=== PATIENT | female | born 1950 | race Caucasian/White ===

== ENCOUNTER 2017-03-02 20:38 | Emergency (ER) | payer OTHER, MEDICARE ==
--- NOTE | 2017-03-02 23:34 | ED ORDER SUMMARY ---
..... Patient: KLARISSA JULIEN OrderSheet [facility] VisitID: [id number] [address] [place] [address] 66y, F Registration Date/Time: 03/02/2017 ORDER SHEET Weight: 58.9 kg Allergies: No Known Drug Allergy GENERAL ORDERS: UA-Culture if indicated Urgent (21:05 03/02/2017 Maikel Justin) (Ack 21:15 LMuller) (21:16 Yulissa R.N.) Chest 2V Urgent (21:33 03/02/2017 Maikel Justin) (Ack 21:39 LMuller) (22:58 LMuller) CBC w Diff Urgent (21:34 03/02/2017 Maikel Justin) (21:34 Yulissa R.N.) CMP Urgent (21:34 03/02/2017 Maikel Justin) (21:35 Yulissa GouldN.) TSH Urgent (21:34 03/02/2017 Maikel Justin) (21:35 Yulissa R.N.) Pulse oximeter (21:34 03/02/2017 Maikel Justin) (21:34 Yulissa R.N.) MEDICATION ORDERS: Phenergan IV 25 mg (HIGH ALERT MEDICATION, NOW) (23:32 03/02/2017 Maikel Justin) (Ack 23:40 Yulissa R.N.) (23:40 Yulissa R.N.) IV FLUIDS: IV NS : initial bolus 1000 mL (1000 mL/hr), then none - for X1 (NOW) (21:33 03/02/2017 Maikel Justin) (Ack 21:35 Yulissa R.N.) (21:41 Yulissa R.N.) Zofran IV 4 mg (NOW) (21:34 03/02/2017 Maikel Justin) (Ack 21:35 Yulissa R.NKatelynn) (21:41 Yulissa R.N.) ORDER SHEET NOTES: [Electronically signed by Dave Friedman R.N. (23:48 03/02/2017)] [Electronically signed by Uri Abreu Dr. (03:52 03/06/2017)] [Electronically locked/signed by Dave Friedman R.N. (23:48 03/02/2017)]
--- NOTE | 2017-03-02 23:34 | ED CLINICAL REPORT ---
Clinical Report - Physicians/Mid Levels [facility] [address] [place] [address] 03/02/2017 20:44 Patient: KLARISSA JULIEN Time Seen: 2114. Arrived- By private vehicle. Historian- patient. HISTORY OF PRESENT ILLNESS Chief Complaint: FEVER. This started past 2 days and is still present. She has had measured fever ("Low 100s to 99"). It is not gone now. Fever was gradual in onset and has been intermittent. No chest pain, decreased oral intake, diarrhea or altered mental status. Additional history - No known contact with a sick individual. She is not immunocompromised. No recent hospitalization. No new medication recently administered. nausea and vomiting. no pain anywhere. Reports history of heat intolerance. Similar symptoms previously: None. Recent medical care: Not recently seen/assessed. REVIEW OF SYSTEMS No anorexia, weight loss, palpitations, calf pain or sputum production. No black stools, difficulty with urination, flank pain, headache or sinus pain. No sore throat, tick bite, easy bruising, enlarged lymph nodes or neck pain. No back pain. no cough. All systems otherwise negative, except as recorded above. PAST HISTORY See nurses notes. SOCIAL HISTORY Former smoker. Not exposed to second-hand smoke at home. No alcohol use or drug use. No recent travel. Residence: from [place]. ADDITIONAL NOTES The nursing notes have been reviewed. PHYSICAL EXAM Vital Signs: 03/02/2017 21:02 BP: 133/74. HR: 96. RR: 16. O2 saturation: 98%. Temp: 98.1 F. Pain level now: 0/10. Blood pressure normal. Oxygen saturation normal. Appearance: Alert. No acute distress. Eyes: Pupils equal, round and reactive to light. Eyes normal inspection. ENT: Ears normal. Nose normal. Pharynx normal. Uvula midline. Neck: Normal inspection. Neck supple. No meningeal signs. CVS: Normal heart rate and rhythm. Heart sounds normal. Respiratory: No respiratory distress. Breath sounds normal. Chest nontender. No rales, rhonchi or wheezes. Abdomen: Soft and nontender. Bowel sounds normal. Skin: Skin warm and dry. Normal skin color. No rash. Normal skin turgor. Extremities: Extremities exhibit normal ROM. Extremities nontender. Neuro: Oriented X 3. No motor deficit. No sensory deficit. LABS, X-RAYS, AND EKG Laboratory Tests: UA-Culture if indicated: (MARIAN: 03/02/2017 21:20) ( [facility] 03/02/2017 21:51) Final results Test Result Flag Units (Reference) URINE COLOR DARK YELLOW URINE APPEARANCE CLEAR URINE GLUCOSE NEGATIVE (NEGATIVE) URINE BILIRUBIN ICTOTEST NEGATIVE (NEGATIVE) URINE KETONE 1+ (NEGATIVE) URINE SPECIFIC GRAVITY 1.020 (1.010-1.030) URINE PH 6.0 (5.0-8.0) URINE PROTEIN 1+ (NEGATIVE) URINE UROBILINOGEN 1.0 EU/dL (0.2-1.0) URINE NITRITE NEGATIVE (NEGATIVE) URINE BLOOD NEGATIVE (NEGATIVE) URINE LEUK ESTERASE NEGATIVE (NEGATIVE) URINE RBC NONE SEEN rbc/hpf (0-1) URINE WBC 0-1 wbc/hpf (0-1) URINE EPITHELIAL CELLS 0-1 EPI/hpf (0-5) URINE BACTERIA NONE SEEN (NONE SEEN) URINE COMMENT CULT NOT INDICATED 3-5 Hyaline Casts/l.p.f.1+ MucusURINE CULTURES ARE SET-UP BASED ON THE FOLLOWING CRITERIA:POSITIVE NITRITEPOSITIVE LEUKOCYTE ESTERASEGREATER THAN 10 WHITE BLOOD CELLSMODERATE (2+) OR GREATER BACTERIA CBC w Diff: (MARIAN: 03/02/2017 21:27) ( [facility] 03/02/2017 21:46) Final results Test Result Flag Units (Reference) WHITE BLOOD COUNT 9.4 K/uL (4.5-11.5) RED BLOOD COUNT 4.45 M/uL (4.00-5.20) HEMOGLOBIN 12.9 gm/dL (12.0-16.0) HEMATOCRIT 38.4 % (36.0-46.0) MEAN CELL VOLUME 86 fL (80-100) MEAN CORPUSCULAR HGB 29 pg (26-34) MEAN CORPUSCULAR HGB CONC 34 g/dL (31-37) RED CELL DISTRIBUTION WIDTH 15.5 H % (11.6-14.8) PLATELET COUNT 349 K/uL (150-400) NEUTROPHIL % 75.5 H % (50-75) LYMPH % 16.9 L % (25-40) MONO % 6.5 % (3-14) EOSINOPHIL % 0.5 % (0-4) BASOPHIL % 0.6 % (0-2) CMP: (MARIAN: 03/02/2017 21:27) ( MsgRcvd 03/02/2017 22:00) Final results Test Result Flag Units (Reference) GLUCOSE 143 H mg/dL (70-110) BUN 12 mg/dL (7-18) CREATININE 0.8 mg/dL (0.6-1.3) Estimated GFR >60 mL/min Estimated GFR- >60 mL/min Note: Persistent reduction over 3 months in eGFR<60 mL/min/1.73 m2 defines CKD. Patients with eGFR values>=60 mL/min/1.73 m2 may also have CKD if evidence ofpersistent proteinuria. Additional information may be foundat www.kidney.org. SODIUM 140 mmol/L (136-145) POTASSIUM 3.4 L mmol/L (3.5-5.1) CHLORIDE 102 mmol/L (98-107) CARBON DIOXIDE 22 mmol/L (21-32) CALCIUM 9.8 mg/dL (8.5-10.1) TOTAL PROTEIN 8.1 g/dL (6.4-8.2) ALBUMIN 4.1 g/dL (3.3-5.0) BILIRUBIN, TOTAL 0.4 mg/dL (0.0-1.0) ALKALINE PHOSPHATASE 84 U/L (46-116) AST (SGOT) 34 U/L (15-37) ALT (SGPT) 57 U/L (12-78) THYROID STIMULATING HORMONE 1.622 uIU/mL (0.30-3.74) . PROGRESS AND PROCEDURES Course of Care: the patient is a 66-year-old female presenting for evaluation of nausea vomiting and diarrhea. Patient is nontoxic and in no acute distress. Vital signs here in the emergency Department taken on triage are unremarkable. At this time differential diagnosis includes viral etiology for the patient's diarrhea and vomiting. Patient also been evaluated with urinalysis as well as TSH. Patient does report some history of heat intolerance. Patient also been evaluated with a TSH. The patient states that she is currently visiting from out of town. Patient is agreeable to the treatment and plan. the patient's workup was remarkable for the findings above. No signs of urinary tract infection, pancreatitis, hepatitis, or other more sinister etiologies for the patient's symptoms here today. Because of the patient's negative workup here in the emergency department, patient was encouraged to follow up with her primary care doctor in regards to the fever and symptoms here today. I discussed with the patient her workup here in the emergency department including diagnosis, home care, follow-up, and return precautions. All questions have been answered. The patient expressed understanding of these instructions and was agreeable to th. CLINICAL IMPRESSION Acute fever Vomiting with nausea. 03/02/2017 22:50 BP: 130/76. HR: 90. RR: 18. O2 saturation: 95%. Pain level now: 0/10. Blood pressure normal. Oxygen saturation normal. Mild dehydration (acute). INSTRUCTIONS Warnings: GENERAL WARNINGS: Return or contact your physician immediately if your condition worsens or changes unexpectedly, if not improving as expected, or if other problems arise. Specifically return if pain, vomiting, bleeding, breathing difficulty or fever. Your Current Medications: CONTINUE TAKING THE FOLLOWING MEDICATIONS: Diclofenac Oral. Norvasc Oral. Prevacid Oral. Prescription Medications: Phenergan Tablets 25 mg: take 1 tablet orally every 8 hours as needed for nausea and vomiting. Dispense thirty (30). No refill. Substitution is permissible Follow-up: Return to the emergency department as needed. Follow up with your doctor as scheduled. Reason for referral: recheck today's concerns. Summary of care provided to patient via paper. Screening today revealed the patient's blood pressure to be in the normal range. The patient should follow up with a primary care provider for blood pressure management. Understanding of the discharge instructions verbalized by patient. (Electronically signed by Uri Abreu Dr. 03/06/2017 3:52)
--- NOTE | 2017-03-02 23:34 | ED ORDER SUMMARY ---
..... Patient: KLARISSA JULIEN OrderSheet [facility] VisitID: [id number] [address] [place] [address] 66y, F Registration Date/Time: 03/02/2017 ORDER SHEET Weight: 58.9 kg Allergies: No Known Drug Allergy GENERAL ORDERS: UA-Culture if indicated Urgent (21:05 03/02/2017 Maikel Justin) (Ack 21:15 LMuller) (21:16 Yulissa R.N.) Chest 2V Urgent (21:33 03/02/2017 Maikel Justin) (Ack 21:39 LMuller) (22:58 LMuller) CBC w Diff Urgent (21:34 03/02/2017 Maikel Justin) (21:34 Yulissa R.N.) CMP Urgent (21:34 03/02/2017 Maikel Justin) (21:35 Yulissa GouldN.) TSH Urgent (21:34 03/02/2017 Maikel Justin) (21:35 Yulissa R.N.) Pulse oximeter (21:34 03/02/2017 Maikel Justin) (21:34 Yulissa R.N.) MEDICATION ORDERS: Phenergan IV 25 mg (HIGH ALERT MEDICATION, NOW) (23:32 03/02/2017 Maikel Justin) (Ack 23:40 uYlissa R.N.) (23:40 Yulissa R.N.) IV FLUIDS: IV NS : initial bolus 1000 mL (1000 mL/hr), then none - for X1 (NOW) (21:33 03/02/2017 Maikel Justin) (Ack 21:35 Yulissa R.N.) (21:41 Yulissa R.N.) Zofran IV 4 mg (NOW) (21:34 03/02/2017 Maikel Justin) (Ack 21:35 Yulissa R.NKatelynn) (21:41 Yulissa R.N.) ORDER SHEET NOTES: [Electronically signed by Dave Friedman R.N. (23:48 03/02/2017)] [Electronically signed by Uri Abreu Dr. (03:52 03/06/2017)] [Electronically locked/signed by Dave Friedman R.N. (23:48 03/02/2017)]
--- NOTE | 2017-03-02 23:34 | ED NURSING NOTES ---
Clinical Report - Nurses [facility] [address] [place] [address] 03/02/2017 20:44 Patient: KLARISSA JULIEN TRIAGE Triage time 21:04. Acuity: LEVEL 3. Chief Complaint: NAUSEA and VOMITING. --21:13 Dave Friedman R.N. 21:02 03/02/17. BP: 133/74. HR: 96. RR: 16. O2 saturation: 98%. Temp: 98.1 F (oral). Pain level now: 0/10. --21:13 Dave Friedman R.N. Weight: 58.9 kg. Height/Length: 62 inches. BMI: 23.8. --21:11 Dave Friedman R.N. Medications Norvasc Oral. --21:08 Dave Friedman R.N. Prevacid Oral. --21:08 Dave Friedman R.N. Diclofenac Oral. --21:08 Dave Friedman R.N. Medication/allergy information source: the patient. --21:13 Dave Friedman R.N. Allergies No Known Drug Allergy. --21:08 Dave Friedman R.N. History Arrived by private vehicle. Historian: patient. Accompanied by friend. ( Fever since Thursday night with nausea and vomiting, no diarrhea and abdominal pain.). Onset. (3 days ago). She has had nausea and vomiting. Last oral intake by patient was liquid 1 hour ago. Treatment CYTOTECHNOLOGIST/HISTOTECHNOLOGIST: Took aspirin. PAST MEDICAL HX: Gastroesophageal reflux disease. SURGERY HX: Had hysterectomy. Tonsillectomy. ( thyro-glossal cyst removal). SOCIAL HX: Smoker- current status unknown. Occasional alcohol use; consumes wine by the glass. Recent travel in the last week- [facility]. --21:13 Dave Friedman R.N. PROBLEMS: Hypertension. Arthritis. Back Pain. --21:10 Dave Friedman R.N. Interventions ID band on patient. To room. --21:13 Dave Friedman R.N. PHYSICAL ASSESSMENT Ambulatory to room. GENERAL / NEURO / PSYCH: Alert. Oriented X 4. Appears in no acute distress. HEENT: Mucous membranes are pink. RESPIRATORY: Respirations not labored. Breath sounds within normal limits. CVS: Capillary refill less than 2 seconds. GI / : The patient has had nausea. Emesis noted. Has vomited numerous times. Abdomen soft and nontender. Bowel sounds within normal limits. SKIN: Skin is warm and dry. --21:13 Dave Friedman R.N. NURSING PROGRESS NOTES Patient gowned. Head of bed elevated. Patient identifiers checked. Call light placed in reach. Side rails up x 1. Bed placed in lowest position. Brakes of bed on. Patient ready for evaluation- ED physician and PA notified. --21:14 Dave Friedman R.N. Patient ID band checked for patient name and birthdate: patient confirmed. Instructions provided to collect clean catch urine and patient verbalized understanding. Clean catch urine collected with return of franchesca-colored clear urine; sample sent to lab for urinalysis. Specimen labeled in the presence of the patient. --21:15 Dave Friedman R.N. 21:27 03/02/2017 Site #1 started via IV in the right antecubital space with an 20g angiocath; one attempt. Blood drawn: rainbow set. Labeled in the presence of the patient and sent to the lab. Saline lock flushed with 10 mL saline. --21:32 Dave Friedman R.N. Patient ID band checked for patient name and birthdate: patient confirmed. Blood samples drawn from the right antecubital space by nurse ; labeled in presence of the patient and sent to lab: rainbow set. --21:33 Dave Friedman R.N. 21:36 03/02/2017 Started bag #1 1000 mL IV Fluids IV NS (Saline); bolus of 1000 mL over 1 hour(s) via site #1 via IV pump. Allergies verified and confirmed 5 rights. IV patency established. IV site checked: no pain, redness, or swelling. IV flushed thoroughly pre- and post-medication administration. --21:41 Dave Friedman R.N. 21:41 03/02/2017 Zofran (Ondansetron HCl) IVP 4 mg given over 2 minute(s) via site #1. Allergies verified and confirmed 5 rights. IV patency established. IV site checked: no pain, redness, or swelling. IV flushed thoroughly pre- and post-medication administration. IVP given by RN. --21:41 Dave Friedman R.N. 22:11 03/02/17. BP: 120/62. HR: 83. RR: 15. O2 saturation: 98%. Temp: 98.1 F (oral). --22:12 Dave Friedman R.N. Reassessment after fluids administered. She is calm and resting quietly. GI / : The patient reports nausea is still present but improving. SKIN: Skin is warm and dry. Skin color within normal limits. --22:12 Dave Friedman R.N. 22:17 03/02/2017 IV Fluids IV NS Discontinued: bag #1 infused. Total amount infused: 1000 mL. IV patency established. IV site checked: no pain, redness, or swelling. IV flushed thoroughly. --22:17 Dave Friedman R.N. 22:50 03/02/17. BP: 130/76. HR: 90. RR: 18. O2 saturation: 95%. Pain level now: 0/10. --22:51 Dave Friedman R.N. Reassessment after fluids administered. She is calm and resting quietly. Overall patient status- she states feels better. GI / : The patient reports nausea is still present but improving and currently mild in severity. Abdomen soft and nontender. SKIN: Skin is warm and dry. Skin color within normal limits. --22:51 Dave Friedman R.N. 23:40 03/02/2017 PHENERGAN (Promethazine HCl) IVP 12.5 mg given over 2 minute(s) via site #1. Allergies verified and confirmed 5 rights. IV patency established. IV site checked: no pain, redness, or swelling. IV flushed thoroughly pre- and post-medication administration. IVP given by RN. --23:40 Dave Friedman R.N. 23:45 03/02/2017 Site #1 removed upon discharge. Pressure dressing applied. --23:45 Dave Friedman R.N. DISPOSITION / DISCHARGE Condition at departure: improved. No learning barriers present. Discharge instructions provided and reviewed with the patient. Reviewed medication(s) side effects, precautions, dosing and course information. Prescription(s) given to the patient. Reviewed referral to a primary care physician for followup. Patient verbalized understanding. Written instructions provided in Portuguese. The patient was discharged home and accompanied by family. She left the Emergency Department ambulatory and via private vehicle. Family member driving. --23:46 Dave Friedman R.N. 23:40 03/02/17. BP: 141/69. HR: 90. RR: 16. O2 saturation: 99%. Temp: 97.9 F (oral). Pain level now: 0/10. --23:46 Dave Friedman R.N. Departure time: 23:48. --23:48 Dave Friedman R.N. Locked/Released at 03/02/2017 23:48 by Dave Friedman R.N.
--- NOTE | 2017-03-02 23:46 | DIAGNOSTIC IMAGING REPORT ---
PROCEDURE: XR CHEST 2 VIEW INDICATION: FEVER TECHNIQUE: PA and lateral view. COMPARISON: None. FINDINGS: Lungs are clear. Cardiovascular structures are normal. Mild degenerative changes. IMPRESSION: 1. Negative chest.
--- NOTE | 2017-03-06 03:53 | ED DISCHARGE INSTRUCTIONS ---
Patient: KLARISSA JULIEN General Instructions [facility] VisitID: [id number] [address] [place] [address] 66y, F Registration Date/Time: 03/02/2017 Acute fever Vomiting with nausea. 03/02/2017 22:50 BP: 130/76. HR: 90. RR: 18. O2 saturation: 95%. Pain level now: 0/10. Blood pressure normal. Oxygen saturation normal. Mild dehydration (acute). INSTRUCTIONS Warnings: GENERAL WARNINGS: Return or contact your physician immediately if your condition worsens or changes unexpectedly, if not improving as expected, or if other problems arise. Specifically return if pain, vomiting, bleeding, breathing difficulty or fever. Your Current Medications: CONTINUE TAKING THE FOLLOWING MEDICATIONS: Diclofenac Oral. Norvasc Oral. Prevacid Oral. Prescription Medications: Phenergan Tablets 25 mg: take 1 tablet orally every 8 hours as needed for nausea and vomiting. Dispense thirty (30). No refill. Substitution is permissible Follow-up: Return to the emergency department as needed. Follow up with your doctor as scheduled. Reason for referral: recheck today's concerns. Summary of care provided to patient via paper. Screening today revealed the patient's blood pressure to be in the normal range. The patient should follow up with a primary care provider for blood pressure management. Understanding of the discharge instructions verbalized by patient. ADDITIONAL INFORMATION Febrile Illness, Uncertain Cause (Adult) You have a fever, but the cause is not certain. A fever is a natural reaction of the body to an illness such as infections due to a virus or bacteria. In most cases, the temperature itself is not harmful. It actually helps the body fight infections. A fever does not need to be treated unless you feel very uncomfortable. Sometimes a fever can be an early sign of a more serious infection. Therefore, you should watch for the signs listed below. Home Care: If signs and symptoms are severe, rest at home for the first 2-3 days. When you resume activity, don't let yourself get too tired. Stay away from cigarette smoke (yours and other peoples). You may use acetaminophen (Tylenol) or ibuprofen (Motrin, Advil) to control fever or pain, unless another medicine was prescribed. NOTE: If you have chronic liver or kidney disease or ever had a stomach ulcer or GI bleeding, talk with your doctor before using these medicines. (Aspirin should never be used in anyone under 18 years of age who is ill with a fever. It may cause severe liver damage.) Your appetite may be poor, so a light diet is fine. Avoid dehydration by drinking 6-8 glasses of fluid per day (water, sport drinks such as Gatorade, sodas without caffeine, juices, tea, soup). Extra fluid will help loosen secretions in the nose and lungs. [id number] products will not shorten the duration of the illness but may be helpful for the following symptoms: cough (Robitussin DM); sore throat (Chloraseptic lozenges or spray); nasal and sinus congestion (Actifed or Sudafed). NOTE: Do not use decongestants if you have high blood pressure. Follow Up with your doctor or as advised if you do not start to improve over the next week. Get Prompt Medical Attention if any of the following occur: Cough with lots of colored sputum (mucus) or blood in your sputum Chest pain, shortness of breath, wheezing or difficulty breathing Severe headache, face, neck, throat or ear pain Feeling drowsy or confused Abdominal pain, repeated vomiting or diarrhea Joint pain or a new rash Burning when urinating Fever of 100.4F (38C) oral or higher, not better with fever medication Feeling weak or dizzy Convulsion Dehydration (Adult) Dehydration occurs when your body loses too much fluid. This may be the result of vomiting a lot or from diarrhea,sweating a lot, or a high fever. It may also happen if you dont drink enough fluid when youre sick. Misuse of diuretics (water pills) can also be a cause. Symptoms include thirst and feeling dizzy, weak, fatigued, or very drowsy. The diet described below is usually enough to treat most cases. Sometimes you may needmedicine. Home Care Follow these guidelines for home care: Drink at least 12 8-ounce glasses of fluid every day to overcome the dehydration. Fluid may include water; orange juice; lemonade; apple, grape, and cranberry juice; clear fruit drinks; electrolyte replacement and sports drinks; and teas and coffee without caffeine. If you have been diagnosed with a kidney disease, ask your doctor how much and what types of fluids you should drink to prevent dehydration. If you have kidney disease, drinking too much fluid can cause it build up in the your body and be dangerous to your health. If you have fever, muscle aching, or headache from a viral syndrome, you may useacetaminophen or ibuprofen, unless another medicine was prescribed for this.If you have chronic liver or kidney disease or ever had a stomach ulcer or GI bleeding, talk with your doctor before using these medicines. Don't take aspirin if you are younger than 18 and are ill with a fever.Aspirin raises the chance forsevere liver injury. Follow-up care Follow up with your health care provider if you don't get better in the next 24 to 48 hours. When to seek medical care Get prompt medical attention if any of theseoccur: Continued vomiting (cant keep liquids down) Frequent diarrhea (more than 5 times a day); blood (red or black color) or mucus in diarrhea Blood in vomit or stool Swollen abdomen or increasing abdominal pain Weakness, dizziness, or fainting Unusually drowsy or confused Reduced urine output or extreme thirst Fever of 100.4 F (38 C) oral or higher that does not get better with fever medication Promethazine Hydrochloride Oral tablet What is this medicine? PROMETHAZINE (proe METH a zeen) is an antihistamine. It is used to treat allergic reactions and to treat or prevent nausea and vomiting from illness or motion sickness. It is also used to make you sleep before surgery, and to help treat pain or nausea after surgery. How should I use this medicine? Take this medicine by mouth with a glass of water. Follow the directions on the prescription label. Take your doses at regular intervals. Do not take your medicine more often than directed. Talk to your drywall finisher foreman regarding the use of this medicine in children. Special care may be needed. This medicine should not be given to infants and children younger than 2 years old. What side effects may I notice from receiving this medicine? Side effects that you should report to your doctor or health senior care assistant as soon as possible: blurred vision irregular heartbeat, palpitations or chest pain muscle or facial twitches pain or difficulty passing urine seizures skin rash slowed or shallow breathing unusual bleeding or bruising yellowing of the eyes or skin Side effects that usually do not require medical attention (report to your doctor or health senior care assistant if they continue or are bothersome): headache nightmares, agitation, nervousness, excitability, not able to sleep (these are more likely in children) stuffy nose What may interact with this medicine? Do not take this medicine with any of the following medications: medicines called MAO Inhibitors like Nardil, Parnate, Marplan, Eldepryl other phenothiazines like trimethobenzamide This medicine may also interact with the following medications: barbiturates like phenobarbital bromocriptine certain antidepressants certain antihistamines used in allergy or cold medicines epinephrine levodopa medicines for sleep medicines for mental problems and psychotic disturbances medicines for movement abnormalities as in Parkinson's disease, or for gastrointestinal problems muscle relaxants prescription pain medicines What if I miss a dose? If you miss a dose, take it as soon as you can. If it is almost time for your next dose, take only that dose. Do not take double or extra doses. Where should I keep my medicine? Keep out of the reach of children. Store at room temperature, between 20 and 25 degrees C (68 and 77 degrees F). Protect from light. Throw away any unused medicine after the expiration date. What should I tell my health care provider before I take this medicine? They need to know if you have any of these conditions: glaucoma high blood pressure or heart disease kidney disease liver disease lung or breathing disease, like asthma prostate trouble pain or difficulty passing urine seizures an unusual or allergic reaction to promethazine or phenothiazines, other medicines, foods, dyes, or preservatives or trying to get breast-feeding What should I watch for while using this medicine? Tell your doctor or health senior care assistant if your symptoms do not start to get better in 1 to 2 days. You may get drowsy or dizzy. Do not drive, use machinery, or do anything that needs mental alertness until you know how this medicine affects you. To reduce the risk of dizzy or fainting spells, do not stand or sit up quickly, especially if you are an older patient. Alcohol may increase dizziness and drowsiness. Avoid alcoholic drinks. Your mouth may get dry. Chewing sugarless gum or sucking hard candy, and drinking plenty of water may help. Contact your doctor if the problem does not go away or is severe. This medicine may cause dry eyes and blurred vision. If you wear contact lenses you may feel some discomfort. Lubricating drops may help. See your eye doctor if the problem does not go away or is severe. This medicine can make you more sensitive to the sun. Keep out of the sun. If you cannot avoid being in the sun, wear protective clothing and use sunscreen. Do not use sun lamps or tanning beds/booths. If you are diabetic, check your blood-sugar levels regularly. You have been given the following additional information: Febrile Illness, Uncertain Cause (Adult) Dehydration (Adult) Promethazine Hydrochloride Oral tablet (Electronically signed by Uri Abreu Dr. 03/06/2017 3:52)
--- NOTE | 2017-03-06 03:53 | ED MAR SUMMARY ---
..... Medication Administration Record [facility] [address] [place] [address] Patient: KLARISSA JULIEN Visit ID: [id number] 66y, F Weight: 58.9 kg Height/Length: 62 in BMI: 23.8 ALLERGIES: No Known Drug Allergy Start 21:36 03/02/2017 Dave Friedman R.N., Stop 22:17 03/02/2017 Dave Friedman R.N. Medication Administered: IV NS (SALINE), Dose: IV Fluids, Bolus: 1000 mL over 1 hour(s), Dispensed: 1000 mL bag, Site: #1 right AC. Medication Ordered: IV NS : initial bolus 1000 mL (1000 mL/hr), then none - for X1 (NOW). Given 21:41 03/02/2017 Dave Friedman R.N. Medication Administered: ZOFRAN [IVP] (ONDANSETRON HCL), Dose: 4 mg IVP over 2 minute(s), Site: #1 right AC. Medication Ordered: Zofran IV 4 mg (NOW). Given 23:40 03/02/2017 Dave Friedman R.N. Medication Administered: PHENERGAN [IVP] (PROMETHAZINE HCL), Dose: 12.5 mg IVP over 2 minute(s), Site: #1 right AC. Medication Ordered: Phenergan IV 25 mg (HIGH ALERT MEDICATION, NOW).
--- NOTE | 2017-03-06 03:53 | ED MED RECONCILIATION SUMMARY ---
Patient: KLARISSA JULIEN Medication Reconciliation Report [facility] VisitID: [id number] [address] [place] [address] 66y, F Registration Date/Time: 03/02/2017 Weight: 58.9 kg Height/Length: 62 in. BMI: 23.8 ALLERGIES: No Known Drug Allergy The patient's Home Medications are listed below: CONTINUE TAKING THE FOLLOWING MEDICATIONS: Diclofenac Oral Norvasc Oral Prevacid Oral The source(s) of the original Home Medication information: patient The following Medications were given to the patient in the Emergency Department: IV NS IV Fluids bolus 1000 mL over 1 hour(s), administered: 03/02/2017 9:36:00 PM Zofran [IVP] IVP 4 mg, administered: 03/02/2017 9:41:00 PM PHENERGAN [IVP] IVP 12.5 mg, administered: 03/02/2017 11:40:00 PM The following Medications were prescribed to the patient: Phenergan Tablets 25 mg: take 1 tablet orally every 8 hours as needed for nausea and vomiting. Dispense thirty (30). No refill. Substitution is permissible -- Uri Abreu Dr.
--- NOTE | 2017-03-06 03:53 | ED MED RECONCILIATION SUMMARY ---
Patient: KLARISSA JULIEN Medication Reconciliation Report [facility] VisitID: [id number] [address] [place] [address] 66y, F Registration Date/Time: 03/02/2017 Weight: 58.9 kg Height/Length: 62 in. BMI: 23.8 ALLERGIES: No Known Drug Allergy The patient's Home Medications are listed below: CONTINUE TAKING THE FOLLOWING MEDICATIONS: Diclofenac Oral Norvasc Oral Prevacid Oral The source(s) of the original Home Medication information: patient The following Medications were given to the patient in the Emergency Department: IV NS IV Fluids bolus 1000 mL over 1 hour(s), administered: 03/02/2017 9:36:00 PM Zofran [IVP] IVP 4 mg, administered: 03/02/2017 9:41:00 PM PHENERGAN [IVP] IVP 12.5 mg, administered: 03/02/2017 11:40:00 PM The following Medications were prescribed to the patient: Phenergan Tablets 25 mg: take 1 tablet orally every 8 hours as needed for nausea and vomiting. Dispense thirty (30). No refill. Substitution is permissible -- Uri Abreu Dr.
--- NOTE | 2017-03-06 03:53 | ED MAR SUMMARY ---
..... Medication Administration Record [facility] [address] [place] [address] Patient: KLARISSA JULIEN Visit ID: [id number] 66y, F Weight: 58.9 kg Height/Length: 62 in BMI: 23.8 ALLERGIES: No Known Drug Allergy Start 21:36 03/02/2017 Dave Friedman R.N., Stop 22:17 03/02/2017 Dave Friedman R.N. Medication Administered: IV NS (SALINE), Dose: IV Fluids, Bolus: 1000 mL over 1 hour(s), Dispensed: 1000 mL bag, Site: #1 right AC. Medication Ordered: IV NS : initial bolus 1000 mL (1000 mL/hr), then none - for X1 (NOW). Given 21:41 03/02/2017 Dave Friedman R.N. Medication Administered: ZOFRAN [IVP] (ONDANSETRON HCL), Dose: 4 mg IVP over 2 minute(s), Site: #1 right AC. Medication Ordered: Zofran IV 4 mg (NOW). Given 23:40 03/02/2017 Dave Friedman R.N. Medication Administered: PHENERGAN [IVP] (PROMETHAZINE HCL), Dose: 12.5 mg IVP over 2 minute(s), Site: #1 right AC. Medication Ordered: Phenergan IV 25 mg (HIGH ALERT MEDICATION, NOW).
== END 2017-03-02 23:49 | disposition home or self-care (01) ==
LOC: ED SRH 20:38
DX: E86.0 Dehydration (principal); R50.9 Fever, unspecified; R11.2 Nausea with vomiting, unspecified; I10 Essential (primary) hypertension; Z79.1 Long term (current) use of non-steroidal anti-inflammatories (NSAID); Z79.899 Other long term (current) drug therapy; Z87.891 Personal history of nicotine dependence
CPT/HCPCS: 90004; 90074; 90100; 93140; 95059